=== PATIENT | female | born 1960 | race African-American/Black ===

== ENCOUNTER 2023-10-08 18:04 | Emergency (ER) | payer MEDICARE, MEDICAID ==
[~2023-10-08] VITALS: Ht 157.5 cm; Wt 127.3 kg
[2023-10-08 18:13] VITALS: BP 138/82; PULSE 85; RESP 16; TEMP 98.4
[2023-10-08] MEDS ORDERED: ERYT3.5O8 OU (19:38)
== END 2023-10-08 19:51 | disposition home or self-care (01) ==
LOC: EMS 18:04
DX: H10.89 Other conjunctivitis (principal); J45.909 Unspecified asthma, uncomplicated; I10 Essential (primary) hypertension
CPT/HCPCS: 99283; Z7502